=== PATIENT | female | born 1965 | race Caucasian/White ===

== ENCOUNTER 2016-04-25 07:31 | Day surgery (SDC) | payer OTHER ==
[~2016-04-25] VITALS: Ht 162.6 cm; Wt 65.9 kg
[2016-04-25] VITALS (12 sets, daily range): BP systolic 130–148; BP diastolic 65–79; PULSE 75–91; TEMP 97.4–98.3
[2016-04-25] MEDS ORDERED: LEXAPRO 5MG5 MG PO (07:40)
[2016-04-25] MEDS ORDERED: ZANTAC 7575 MG PO (07:42)
[2016-04-25] MEDS ORDERED: CANASA 1000MG1000 MG RC (07:42)
[2016-04-25] MEDS ORDERED: PROBIOTIC FORMU1 CAP PO (07:42)
[2016-04-25] MEDS ORDERED: XANAX .25M0.25 MG/TA PO (07:43)
[2016-04-25] MEDS ORDERED: GLUCOSAMIN 500 PO (07:43)
[2016-04-25] MEDS ORDERED: VITAMIN C500 MG PO (07:43)
[2016-04-25] MEDS ORDERED: VITAMIN D32000 I1 PO (07:44)
[2016-04-25] MEDS ORDERED: ZYRTEC 10MG10 MG PO (07:44)
[2016-04-26 03:56] VITALS: BP 113/62; PULSE 75; TEMP 98.2
== END 2016-04-26 10:49 | disposition home or self-care (01) ==
LOC: COL.ER 07:31 → SDCO 11:08 → JCC 16:19 → SDCO 04-26 10:49
DX: S82.851A Displaced trimalleolar fracture of right lower leg, initial encounter for closed fracture (principal); W00.0XXA Fall on same level due to ice and snow, initial encounter; I35.1 Nonrheumatic aortic (valve) insufficiency; K21.9 Gastro-esophageal reflux disease without esophagitis
CPT/HCPCS: OP; C1713; J0690; J1100; J2250; J2405; J2704; J2795; J3010; J7030; J7120